=== PATIENT | male | born 1975 | race Caucasian/White ===

== ENCOUNTER → 2016-11-09 | Outpatient (CLI) | payer OTHER ==
[~2016-11-09] VITALS: Ht 180.3 cm; Wt 99.2 kg
[~2016-11-09] MED LIST: APAP500 PO; HYDROCODONE-AP1 EAC6 PO; MOBIC15 MG PO; PROZAC20 MG PO; XANAX 0.5 MG0.5 M1 PO; ZANTAC 150MG T150 MG PO; ZYRTEC10 MG PO
--- NOTE | ~2016-11-09 | HPC ---
[facility] [place] [address] PAIN MANAGEMENT CONSULTATION Name: LARON DAHL Room #: REG Hannah Tiffanie#: [id number] Admission: 11/09/16 Attend Phys: Aura Landry MD Discharge: Date of : 77 Report #: [id number] THIS REPORT FOR: //name// CC: Mauricio Landry DATE OF SERVICE: 11/09/2016 CHIEF COMPLAINT: "Pain in the mid back, which I have had since [employer] [employer] and pain in the left neck and chest area." FOLLOWUP HISTORY: The patient is a 41-year-old gentleman who has been referred to the pain clinic for evaluation. The patient states he has had chronic pain since [employer]. He initially noticed some pain and discomfort at approximately T7-T8 while playing football or some activity in [employer]. Since that time, he has had a point in the mid back area, which is focal. This could be quite problematic with certain activities. He sometimes notes pain that makes it difficult for him to engage in certain endeavors. The patient states that he has seen a number of doctors over the years. He has undergone treatment for neck pain and chest wall pain. He states that he has been told that it may be secondary to nerve root compression. The patient had an MRI of the spine, which in the past showed some type of bulging disk per history recount. The patient states that he has had epidural steroid injections in the past and they have provided some benefit, but no long-term benefit. He finds that the most distressing symptomatology is that in his left neck. He states that he has been told that he has enlarged lymph nodes. Palpation in this neck near the sternocleidomastoid muscle can reproduce some pain and discomfort. The patient is somewhat concerned that no specific etiology has been found for his chest complaints. He states that he has undergone GI evaluations as well as cardiac evaluations with no specific findings. PAST MEDICAL HISTORY: Stomach problems, chronic irritable bowel syndrome, emotional problems, anxiety -- particularly what concerned about the left neck pain which has been attributed to adenopathy. History of melanoma. Epidural steroid injections in the past. Kidney stone 6 years ago. PAST SURGICAL HISTORY: Vasectomy 2008, lymph node biopsy 2004, skin removal on the back at age 26. MEDICATIONS: Alprazolam 0.5 mg daily, flaxseed oil, fluoxetine 10 mg, 30 mg capsules p.o. every day, Lotrisone topical cream, multivitamins, Neurontin 100 mg, Combes 5/325 q. 6 hours p.r.n., Protonix 40 mg delayed release, Zantac 150 mg tablets, [place] [address] PAIN MANAGEMENT CONSULTATION Name: LARON DAHL Room #: KARINA Moreno#: [id number] Admission: 11/09/16 Attend Phys: Aura Landry MD Discharge: Date of : 77 Report #: [id number] ALLERGIES: PENICILLIN. SOCIAL HISTORY: Denies use of abusive substances. Denies use of tobacco. Exercise occasionally. REVIEW OF SYSTEMS: Review of 14 areas in the chart indicate generally good health. Wears glasses, has ringing in the ears, some chest discomfort, some palpitations, constipation, kidney stone 6 years ago, rash and itching, lightheadedness, numbness and tingling sensations, tremors, nervousness, depression, insomnia, enlarged glands in the left neck area. PHYSICAL EXAMINATION: Height 180 cm, weight 99 kg, BMI 30, blood pressure 127/87, pulse 84, respiratory rate 20, room air saturation is 99%. The patient has pain in the midline area at approximately T7-T8. Palpation to this area causes some discomfort in this focal area. It does not radiate into his chest area. The patient has pain and discomfort in the left neck area. Palpation in the area of his sternocleidomastoid causes some increased pain and discomfort. Palpation over the left sternal border at approximately T2/T3, T6 and T7 were tender to palpation. LABORATORY DATA: 1. MRI of the thoracic spine dated 10/27/2016 reveal kyphosis of the thoracic spine noted. 2. Wedging identified at T7, T8 and T9. Hemangioma identified at T8. Endplate changes noted at inferior T9. Level T5/T6 left paracentral protruded disk without significant effacement of the thoracic sac or cord. Neural foramina intact. 3. T6/T7 central left paracentral protruded disk with effacement of the anterior thecal sac and cord. Neural foramen are intact. 4. T7/T8 left paracentral protruded disk with mild effacement of the anterior thecal sac and cord. 5. T8/T9 central disk osteophyte complex with mild effacement anterior thecal sac and cord. Neural foramen intact. IMPRESSION: 1. Chronic pain in the thoracic area since [place] approximately 25 years with waxing and waning discomfort. 2. Left tenderness along the costochondral border -- costochondritis. 3. Irritable bowel syndrome. 4. Anxiety associated with his health. RECOMMENDATIONS: 1. We discussed treatment options with the patient. Risk and benefits of injection along the costochondral border in 2 places, left T2 through T4. 2. Injection between T7 and T9. The patient elects to proceed. [place] [id number] PAIN MANAGEMENT CONSULTATION Name: LARON DAHL Room #: REG [facility]#: [id number] Admission: 11/09/16 Attend Phys: Aura Landry MD Discharge: Date of : 77 Report #: [id number] PROCEDURE NOTE: The patient was placed in the prone position. His left area was sterilely prepped with a chlorhexidine solution in 2 areas, T2 through T4, second area T7 through T9. After appropriate sterile prep, a 25-gauge needle was then advanced into the area of the first zone. At T4 through T2, a total of 10 mL 0.5% bupivacaine with 40 mg triamcinolone was injected. The second site T7 through T9 was then injected with 40 mg triamcinolone and 10 mL 0.5% bupivacaine. The patient tolerated the procedure well. He remained in the pain clinic for an appropriate amount of time. The patient will try Voltaren cream to the affected area 3 times per day. He will call us if he has any problems with his medications. He will continue with his current medications. We would like to thank you for letting us participate in his care. We hope he continues to improve. <ELECTRONICALLY SIGNED> By: Aura Landry MD 11/22/16 [id number] Aura Landry MD /nt
[2016-11-09 09:57] VITALS: BP 122/87
== END ==
LOC: PAIN 07:11
DX: M54.6 Pain in thoracic spine (principal); G89.4 Chronic pain syndrome; M94.0 Chondrocostal junction syndrome [Tietze]; K58.8 Other irritable bowel syndrome; F41.8 Other specified anxiety disorders; Z85.828 Personal history of other malignant neoplasm of skin; Z87.891 Personal history of nicotine dependence